=== PATIENT | female | born 1950 | race Caucasian/White ===

== ENCOUNTER 2022-10-22 23:54 | Emergency (ER) | payer OTHER, SELFPAY ==
--- NOTE | ~2022-10-22 | CT_ITS ---
EXAMINATION: CT ABDOMEN AND PELVIS WITHOUT CONTRAST CLINICAL INFORMATION: Nausea and vomiting with diarrhea. Rule out colitis COMPARISON: None TECHNIQUE: Multidetector volumetric imaging was performed from the superior aspect of the liver through the pubic symphysis. Sagittal and coronal reformatted images were obtained on the technologist's workstation. This CT examination was performed using dose optimization techniques as appropriate, variously including the following: *Automated exposure control *Adjustment of mA and/or kV according to patient size (this includes techniques or standardized protocols for targeted exams where dose is matched to indication/reason for exam; i.e. extremities or head) *Use of iterative reconstruction technique DLP: 635 mGy-cm FINDINGS: LUNG BASES: Prominent coronary artery calcifications are present. Heart normal size. No pericardial effusion. No pleural effusion. There is a small hiatal hernia. LIVER, GALLBLADDER, AND BILIARY TREE: The liver is normal in size, shape, and attenuation. No focal hepatic lesion or biliary ductal dilatation is present. The gallbladder is not identified. PANCREAS: Unremarkable. No mass or peripancreatic inflammatory change seen. SPLEEN: Unremarkable. ADRENAL GLANDS: Unremarkable. KIDNEYS AND URETERS: The kidneys are normal in size, shape, and attenuation. No hydronephrosis, hydroureter, or calculi seen. There is some perinephric stranding seen bilaterally. Prominent vascular calcifications present. BLADDER: Unremarkable. GASTROINTESTINAL TRACT: No dilated loops of large or small bowel are evident. No free air or free fluid is seen. There is a small hiatal hernia. No pericolonic inflammatory changes seen. Appendix not identified. No inflammatory changes seen within the right lower quadrant. ABDOMINAL WALL: No significant hernia is appreciated. LYMPH NODES: No appreciable lymphadenopathy identified. VASCULAR: There is prominent aortoiliac and visceral vessel disease with calcified plaque present. No abdominal aortic aneurysm. PELVIC VISCERA: Adnexal calcifications are seen bilaterally. OSSEOUS STRUCTURES: There is osteopenia visualized bones. Osteitis pubis is present. No suspicious destructive bony lesions identified. CT/CT abdomen pelvis wo IV con IMPRESSION: Prominent arterial calcified plaque. No evidence of ileus or obstruction. No evidence of colitis. Fleischner guidelines were followed.
[2022-10-23 01:14] VITALS: BP 130/64; PULSE 92; RESP 16; TEMP 36.3; O2SAT 98; BMI 26.5
--- NOTE | 2022-10-23 01:19 | ECG_ITS ---
Test Reason : ABD PAIN/NAUSEA/VOMITING Blood Pressure : / mmHG Vent. Rate : 085 BPM Atrial Rate : 085 BPM P-R Int : 172 ms QRS Dur : 116 ms QT Int : 394 ms P-R-T Axes : 018 -21 122 degrees QTc Int : 468 ms Normal sinus rhythm Left ventricular hypertrophy with QRS widening and repolarization abnormality ( R in aVL , [employer] product ) Cannot rule out Septal infarct , age undetermined Abnormal ECG No previous ECGs available Referred By: Generic ED Physician Electronically Signed By:Jorge Mariee
[2022-10-23 02:44] LABS: Hematocrit 38.3 % (37.0-47.0); Hemoglobin 12.7 g/dl (12.0-16.0); Mean Corpuscular HGB Conc 33.2 g/dl (31.0-35.0); Mean Corpuscular Hemoglobin 29.5 pg (27.0-33.0); Mean Corpuscular Volume 89.1 fL (80.0-98.0); Mean Platelet Volume 9.2 fL (9.4-12.3); Platelet Count 294 X10*3/uL (160-400); Red Cell Distribution Width 14.8 % (11.0-16.0); White Blood Count 7.8 X10*3/uL (4.8-10.8)
[2022-10-23 03:02] LABS: Appearance Urine Clear; Color Urine Dark Yellow; Glucose Urine UA >=1000 mg/dL (Negative); Leukocyte Esterase Urine Negative (Negative); Nitrite Urine Negative (Negative); PH 5.5 (5.0-9.0); Specific Gravity - Urine 1.025 (1.005-1.025); UMIC TRIGGER UACC YES; Urine Blood Negative (Negative); Urine Ketones 15 mg/dL (Negative); Urine Protein 100 (2+) mg/dL (Neg-Trace)
[2022-10-23 03:12] LABS: Bacteria Urine Trace (None Seen); Hyaline Casts Urine >20 /LPF (0-2); WBC Urine 0-5 /HPF (0-5)
[2022-10-23 03:13] LABS: Alanine Aminotransferase 71 U/L (0-31); Albumin Level 4.4 g/dL (3.5-5.0); Alkaline Phosphatase 76 U/L (39-117); Anion Gap 18 (12-20); Aspartate Amino Transferase 61 U/L (5-31); Bilirubin Direct 0.2 mg/dL (0.0-0.5); Bilirubin Total 0.7 mg/dL (0.0-1.0); Blood Urea Nitrogen 25 mg/dL (9-16); Carbon Dioxide 28 mmol/L (22-29); Chloride 95 mmol/L (96-108); Creatinine Clr Calc Pharmacy 34.6; Estimated Glomerular Filt Rate 38; Glucose Random 424 mg/dL (60-115); Lipase 10 U/L (8-78); Potassium 4.3 mmol/L (3.3-5.1); Sodium 137 mmol/L (135-145); Total Protein 8.3 g/dL (6.5-8.0)
[2022-10-23 03:20] LABS: Influenza A PCR NEGATIVE (Negative); Influenza B PCR NEGATIVE (Negative); Resp Syncy Virus RNA Qual PCR NEGATIVE (Negative); SARS COV2 PCR INHOUSE NEGATIVE (Negative)
[2022-10-23 04:24] VITALS: BP 115/61; PULSE 99; RESP 16; TEMP 36.9; O2SAT 99
--- NOTE | 2022-10-23 04:55 | ED.ABDPAIN ---
HPI - Abdominal Pain General Chief Complaint: Abdominal Pain Stated Complaint: vomiting, abdominal pain Time Seen by Provider: 10/23/22 04:54 Source: patient, family and sales solutions associate Mode of arrival: ambulatory History of Present Illness HPI narrative: 72-year-old female presents with initially having diarrheal episodes 3 days ago that gradually resolved and now patient reports that she is having nausea and vomiting with feeling lightheaded while vomiting but denies any urinary symptoms, shortness of breath, chest pain/palpitations. Patient's history is significant for being treated for UT at [facility] on 10/11 with stent placement. The medications that she presents are aspirin/Plavix. She denies any fevers or chills. Related Data Home Medications Medication Instructions Recorded Confirmed diabetic supplies, [email or web address]. ##1 12/15/20 12/18/20 gabapentin 100 mg capsule 100 mg PO BID 12/15/20 12/18/20 glyburide 5 mg tablet 5 mg PO DAILY 12/15/20 12/18/20 hard/soft/gas permeable prods #12 mL 12/15/20 12/18/20 (Systane Contacts eye drops) insulin glargine 100 unit/mL 10 unit subcut BEDTIME 12/15/20 12/18/20 subcutaneous cartridge ketotifen fumarate 0.025 % (0.035 1 drp ophthalmic (eye) DAILY PRN 12/15/20 12/18/20 %) eye drops (Zaditor) losartan 25 mg tablet 25 mg PO DAILY 12/15/20 12/18/20 metformin 500 mg tablet 500 mg PO BID 12/15/20 12/18/20 omeprazole 40 mg capsule,delayed 40 mg PO DAILY 12/15/20 12/18/20 release simvastatin 20 mg tablet 20 mg PO DAILY 12/15/20 12/18/20 Previous Rx's Medication Instructions Recorded azithromycin 250 mg tablet See Rx Instructions PO .COMPLEX #6 12/15/20 tabs cyclobenzaprine 10 mg tablet 10 mg PO BEDTIME PRN muscle spasm 12/15/20 30 days #30 tabs dextromethorphan-guaifenesin ER 60 1 tab PO Q12H 10 days #20 tabs 12/15/20 mg-1,200 mg tab,extend release,12hr (Mucinex DM) ibuprofen 800 mg tablet 800 mg PO Q8H PRN pain 10 days #30 12/15/20 tabs gabapentin 300 mg capsule 300 mg PO BEDTIME 60 days #60 caps 12/19/20 insulin glargine 100 unit/mL 10 unit (0.1 mL) subcut QPM 3 12/19/20 subcutaneous solution months #9 mL insulin human U-100 NPH-regulr 1 sliding scale dose subcut 12/19/20 70-30 mix 100 unit/mL subcutaneous USEASDIRECTD 3 months #30 mL susp (Humulin 70/30 U-100 Insulin) insulin lispro 100 unit/mL 30 unit (0.3 mL) subcut BID 3 12/19/20 subcutaneous half-unit pen months #54 mL (Humalog Patrick KwikPen (U-100)) Allergies Allergy/AdvReac Type Severity Reaction Status Date / Time No Known Allergies Allergy Verified 10/23/22 01:18 Review of Systems Review of Systems Pertinent positives and negatives as stated in HPI 10 point review of systems is otherwise negative. PMFSH Past Medical History Source: nursing notes reviewed Medical History Arthritis Common cold Diabetes Diabetes Neuropathy Retinopathy Surgical History H/O eye surgery Hx of cholecystectomy Family History Family History Mother Liver problem Father Heart problem Social History Social History Alcohol intake: never Advance Directives: No Physical Exam ED Vital Signs: Vital Signs - 24 hr 10/23/22 01:14 10/23/22 04:24 Temperature 97.3 F 98.5 F Pulse Rate 92 99 Respiratory Rate 16 16 Blood Pressure 130/64 115/61 Pulse Oximetry 98 99 Oxygen Delivery Method Room Air Room Air BMI result Body Mass Index 26.5 VITAL SIGNS: Reviewed. GENERAL: Well developed, well nourished, in no acute distress. HEAD: Normocephalic/atraumatic EYES: PERRLA, EOMI EARS: Ext canals without abnormality OROPHARYNX: no oral lesions noted, posterior pharynx clear NECK: Supple, no adenopathy LUNGS: Normal breath sounds. No adventitious sounds or accessory muscle use. SpO2<99> CARDIOVASCULAR: Regular rate and rhythm without noted murmurs, no JVD or lower extremity edema. ABDOMEN: Soft, non-tender, non-distended with bowel sounds. MUSCULOSKELETAL: No tenderness, deformities, or effusions noted on gross inspection. EXTREMITIES: No cyanosis, clubbing or edema. SKIN: Inspection of the skin reveals no rashes NEUROLOGIC: Alert and oriented x 4. Strength and sensation to light touch were grossly intact x 4. Course Course Course Narrative: 72-year-old female with history and clinical presentation suggestive of possible gastroenteritis and doubt infections such as C diff as patient is diarrheal episodes have resolved. IVF and Zofran ordered. Signed out to Dr Johnston Medical Decision Making Lab Data Result Diagrams: 10/23/22 02:35 10/23/22 02:35 Labs: Lab Results 10/23/22 10/23/22 10/23/22 Range/Units 02:35 02:35 02:35 WBC 7.8 (4.8-10.8) X10*3/uL RBC 4.30 (4.20-5.50) X10*6/uL Hgb 12.7 (12.0-16.0) g/dl Hct 38.3 (37.0-47.0) % MCV 89.1 (80.0-98.0) fL MCH 29.5 (27.0-33.0) pg MCHC 33.2 (31.0-35.0) g/dl RDW 14.8 (11.0-16.0) % Plt Count 294 (160-400) X10*3/uL MPV 9.2 L (9.4-12.3) fL Absolute Nucleated RBC 0.000 (0.0-0.012) X10*3/uL Nucleated RBC % (auto) 0.0 (0.0-0.2) /100WBC Sodium 137 (135-145) mmol/L Potassium 4.3 (3.3-5.1) mmol/L Chloride 95 L (96-108) mmol/L Carbon Dioxide 28 (22-29) mmol/L Anion Gap 18 (12-20) BUN 25 H (9-16) mg/dL Creatinine 1.38 (0.5-1.4) mg/dL Estim Creat Clear Calc 34.6 Estimated GFR 38 Random Glucose 424 H* (60-115) mg/dL Calcium 10.0 (8.4-10.2) mg/dL Total Bilirubin 0.7 (0.0-1.0) mg/dL Direct Bilirubin 0.2 (0.0-0.5) mg/dL AST 61 H (5-31) U/L ALT 71 H (0-31) U/L Alkaline Phosphatase 76 (39-117) U/L Troponin I High Sens (<3.5-17.0) ng/L Total Protein 8.3 H (6.5-8.0) g/dL Albumin 4.4 (3.5-5.0) g/dL Lipase 10 (8-78) U/L Urine Color Urine Appearance Urine pH (5.0-9.0) Ur Specific [place] (1.005-1.025) Urine Protein (Neg-Trace) mg/dL Urine Glucose (UA) (Negative) mg/dL Urine Ketones (Negative) mg/dL Urine Blood (Negative) Urine Nitrite (Negative) Ur Leukocyte Esterase (Negative) Urine RBC (0-2) /HPF Urine WBC (0-5) /HPF Ur Squamous Epith Cells (0-2) /HPF Urine Bacteria (None Seen) Hyaline Casts (0-2) /LPF Urine Yeast Acetone, Qual Negative (Negative) Influenza Type A (PCR) NEGATIVE (Negative) Influenza Type B (PCR) NEGATIVE (Negative) RSV RNA Qual (PCR) NEGATIVE (Negative) SARS-CoV-2 RNA (RT-PCR) NEGATIVE (Negative) 10/23/22 10/23/22 Range/Units 02:55 05:56 WBC (4.8-10.8) X10*3/uL RBC (4.20-5.50) X10*6/uL Hgb (12.0-16.0) g/dl Hct (37.0-47.0) % MCV (80.0-98.0) fL MCH (27.0-33.0) pg MCHC (31.0-35.0) g/dl RDW (11.0-16.0) % Plt Count (160-400) X10*3/uL MPV (9.4-12.3) fL Absolute Nucleated RBC (0.0-0.012) X10*3/uL Nucleated RBC % (auto) (0.0-0.2) /100WBC Sodium (135-145) mmol/L Potassium (3.3-5.1) mmol/L Chloride (96-108) mmol/L Carbon Dioxide (22-29) mmol/L Anion Gap (12-20) BUN (9-16) mg/dL Creatinine (0.5-1.4) mg/dL Estim Creat Clear Calc Estimated GFR Random Glucose (60-115) mg/dL Calcium (8.4-10.2) mg/dL Total Bilirubin (0.0-1.0) mg/dL Direct Bilirubin (0.0-0.5) mg/dL AST (5-31) U/L ALT (0-31) U/L Alkaline Phosphatase (39-117) U/L Troponin I High Sens 11.1 (<3.5-17.0) ng/L Total Protein (6.5-8.0) g/dL Albumin (3.5-5.0) g/dL Lipase (8-78) U/L Urine Color Dark Yellow Urine Appearance Clear Urine pH 5.5 (5.0-9.0) Ur Specific [place] 1.025 (1.005-1.025) Urine Protein 100 (2+) H (Neg-Trace) mg/dL Urine Glucose (UA) >=1000 H (Negative) mg/dL Urine Ketones 15 (Negative) mg/dL Urine Blood Negative (Negative) Urine Nitrite Negative (Negative) Ur Leukocyte Esterase Negative (Negative) Urine RBC 3-5 H (0-2) /HPF Urine WBC 0-5 (0-5) /HPF Ur Squamous Epith Cells 3-5 (0-2) /HPF Urine Bacteria Trace (None Seen) Hyaline Casts >20 (0-2) /LPF Urine Yeast Present Acetone, Qual (Negative) Influenza Type A (PCR) (Negative) Influenza Type B (PCR) (Negative) RSV RNA Qual (PCR) (Negative) SARS-CoV-2 RNA (RT-PCR) (Negative) Independent Interpretation I performed an independent interpretation of an: EKG Interpretation: Normal sinus rhythm, HR-85, no STEMI but there are ST T-wave abnormalities, WI/QTC are within normal limits, QRS is prolonged at 01:16. Medications Administered Discontinued Medications Generic Name Dose Route Start Last Admin Trade Name Freq PRN Reason Stop Dose Admin Sodium Chloride 1,000 mls @ 999 mls/hr 10/23/22 06:30 10/23/22 07:10 Ns IV 10/23/22 07:30 999 mls/hr .Q1H1M TERENCE Administration Discharge Plan Discharge Clinical Impression: Nausea vomiting and diarrhea, Hyperglycemia Patient Disposition: Still a Patient Prescriptions: No Action gabapentin 300 mg capsule 300 mg PO BEDTIME 60 Days Qty: 60 0RF Humulin 70/30 U-100 Insulin 100 unit/mL (70-30) suspension 1 sliding scale dose subcut USEASDIRECTD 90 Days Qty: 30 0RF insulin glargine 100 unit/mL solution 10 unit subcut QPM 90 Days Qty: 9 0RF insulin lispro [Humalog Patrick KwikPen U-100] 100 unit/mL insulin pen, half-unit 30 unit subcut BID 90 Days Qty: 54 0RF glyburide 5 mg tablet 5 mg PO DAILY simvastatin 20 mg tablet 20 mg PO DAILY omeprazole 40 mg capsule,delayed release(DR/EC) 40 mg PO DAILY losartan 25 mg tablet 25 mg PO DAILY gabapentin 100 mg capsule 100 mg PO BID metformin 500 mg tablet 500 mg PO BID (DME) Systane Contacts Drops See Rx Instructions .ROUTE .MEDSUPPLY Qty: 12 Rx Instructions: As directed ketotifen fumarate [Zaditor] 0.025 % (0.035 %) drops 1 drp ophthalmic (eye) DAILY PRN Rx Instructions: administer at least 8 hours apart (DME) diabetic supplies, miscellan. Kit See Rx Instructions .ROUTE .MEDSUPPLY Qty: 1 Label Comments: sterile needlee 0.25mm x 8mm 31g x 5/16 Rx Instructions: As directed insulin glargine 100 unit/mL cartridge 10 unit subcut BEDTIME ibuprofen 800 mg tablet 800 mg PO Q8H PRN (Reason: pain) 10 Days Qty: 30 0RF azithromycin 250 mg tablet See Rx Instructions PO .COMPLEX Qty: 6 0RF Rx Instructions: take 500 mg today (day 1), then 250 mg for 4 days (days 2-5) PO cyclobenzaprine 10 mg tablet 10 mg PO BEDTIME PRN (Reason: muscle spasm) 30 Days Qty: 30 0RF dextromethorphan-guaifenesin [Mucinex DM] 60-1,200 mg tablet extended release 12 hr 1 tab PO Q12H 10 Days Qty: 20 0RF
[2022-10-23 05:05] LABS: Acetone, serum QL Negative (Negative)
[2022-10-23 06:26] LABS: Troponin-I High Sensitivity 11.1 ng/L (<3.5-17.0)
[2022-10-23] MEDS: 0.9 % Sodium Chloride 1,000 ML 999 ML IV (07:10)
[2022-10-23] MEDS: ondansetron HCL 4 MG/2 ML VIAL IVPUSH (08:10)
[2022-10-23 11:18] LABS: Glucose, Whole Blood 381 mg/dL (60-115)
[2022-10-23 11:33] VITALS: BP 110/59; PULSE 82; RESP 18; TEMP 36.7; O2SAT 97
[2022-10-24 14:58] LABS: Adenovirus F 40/41 Not Detected (Not Detect.); Astrovirus Not Detected (Not Detect.); Campylobacter Not Detected (Not Detect.); Cryptosporidium Not Detected (Not Detect.); Cyclospora cayetanensis Not Detected (Not Detect.); E. coli EAEC Not Detected (Not Detect.); E. coli EPEC Not Detected (Not Detect.); E. coli ETEC Not Detected (Not Detect.); E. coli O157 Not Detected (Not Detect.); E. coli STEC Not Detected (Not Detect.); Entamoeba histolytica Not Detected (Not Detect.); Giardia lamblia Not Detected (Not Detect.); Norovirus GI/GII Not Detected (Not Detect.); Plesiomonas shigelloides Not Detected (Not Detect.); Rotavirus A Not Detected (Not Detect.); Salmonella Not Detected (Not Detect.); Sapovirus Not Detected (Not Detect.); Shigella sp./EIEC Not Detected (Not Detect.); Vibrio Not Detected (Not Detect.); Vibrio Cholerae Not Detected (Not Detect.); Yersinia enterocolitica Not Detected (Not Detect.)
== END 2022-10-23 17:29 | disposition home or self-care (01) ==
PROVIDERS: Student in an Organized Health Care Education/Training Program; Emergency Provider Emergency Medicine Emergency Medical Services; PCP Nurse Practitioner Family
DX: K29.70 Gastritis, unspecified, without bleeding (principal); E11.65 Type 2 diabetes mellitus with hyperglycemia; R11.2 Nausea with vomiting, unspecified; Z20.822 Contact with and (suspected) exposure to COVID-19; Z79.4 Long term (current) use of insulin
CPT/HCPCS: 0241U; 36415; 74176; 80053; 81001; 82009; 82248; 82947; 83690; 84484; 85027; 87507; 93005; 96374; 99284; J2405